=== PATIENT | male | born 1945 | race Caucasian/White ===

== ENCOUNTER → 2019-01-17 | Outpatient (CLI) | payer OTHER ==
[2019-01-17 09:26] LABS: CREATININE 1.1 mg/dL (0.7-1.3)
== END ==
LOC: CAT 08:34
PROVIDERS: Nurse Practitioner
DX: K40.20 Bilateral inguinal hernia, without obstruction or gangrene, not specified as recurrent (principal); K57.30 Diverticulosis of large intestine without perforation or abscess without bleeding; N20.0 Calculus of kidney; K76.9 Liver disease, unspecified; K76.89 Other specified diseases of liver; R60.9 Edema, unspecified; N28.1 Cyst of kidney, acquired; M47.817 Spondylosis without myelopathy or radiculopathy, lumbosacral region; M43.17 Spondylolisthesis, lumbosacral region; N40.0 Benign prostatic hyperplasia without lower urinary tract symptoms; M89.9 Disorder of bone, unspecified; N32.9 Bladder disorder, unspecified; C18.9 Malignant neoplasm of colon, unspecified

== ENCOUNTER → 2019-01-21 | Outpatient (CLI) | payer OTHER | LOC: CAT 09:30 | DX: J84.10 Pulmonary fibrosis, unspecified (principal); I70.0 Atherosclerosis of aorta; K76.89 Other specified diseases of liver; N28.89 Other specified disorders of kidney and ureter ==

== ENCOUNTER → 2020-01-01 | Outpatient (CLI) | payer OTHER | LOC: SJCVCIMAG 14:05 | PROVIDERS: ATTEND Internal Medicine Cardiovascular Disease | DX: I10 Essential (primary) hypertension (principal); E78.5 Hyperlipidemia, unspecified ==

== ENCOUNTER → 2020-10-20 | Outpatient (CLI) | payer OTHER | LOC: SJCVC 13:59 | PROVIDERS: ATTEND Internal Medicine Cardiovascular Disease | DX: R94.31 Abnormal electrocardiogram [ECG] [EKG] (principal); I49.49 Other premature depolarization; I10 Essential (primary) hypertension; E78.00 Pure hypercholesterolemia, unspecified; G47.33 Obstructive sleep apnea (adult) (pediatric); Z98.890 Other specified postprocedural states; Z88.8 Allergy status to other drugs, medicaments and biological substances; Z79.82 Long term (current) use of aspirin; Z79.899 Other long term (current) drug therapy; Z87.891 Personal history of nicotine dependence; Z82.49 Family history of ischemic heart disease and other diseases of the circulatory system ==